=== PATIENT | male | born 1945 | race Caucasian/White ===

== ENCOUNTER → 2023-12-14 09:04 | Outpatient (REF) | payer MEDICARE, SELFPAY | LOC: DHCBS MAIN 09:04 | PROVIDERS: ATTENDING PHYSICIAN Internal Medicine Cardiovascular Disease; FAMILY PHYSICIAN Internal Medicine | DX: I42.9 Cardiomyopathy, unspecified (principal) | CPT/HCPCS: 93306 ==

== ENCOUNTER 2024-04-27 18:41 | Emergency (ER) | payer MEDICARE, SELFPAY ==
[2024-04-27 18:47] VITALS: BP 124/74
[2024-04-27] MEDS: BENADRYL 50 MG PO (18:54)
[2024-04-27 19:50] VITALS: BP 110/62
[2024-04-27 20:00] VITALS: BP 119/65
--- NOTE | 2024-04-27 23:08 | ED.SKININJ ---
HPI-Injury
General
Chief Complaint: Bite
Source: patient
Exam Limitations: none
Time Seen by Provider: 04/27/24 20:01
Nursing documentation reviewed up to this point in time: agreed with
History of Present Illness-Injury
Is this injury a work related problem?: No
Is pt an associate of [facility]/[place]?: No
Initial Injury comments:
Stung by bee on right dorsal hand, left neck. No history of bee allergy. No difficulty breathing or swallowing. Brought to ED by spouse for eval.
Past History
Past History
ED Past Medical History: None
ED Past Surgical History: None
Review of Systems
Review of Systems
Allergies reviewed?: Yes
All Other Systems: ROS reviewed and negative except as documented in HPI and ROS
Constitutional: Reports no symptoms
EENT: Reports no symptoms
Respiratory: Reports no symptoms
Cardiac: Reports no symptoms
ABD/GI: Reports no symptoms
Musculoskeletal: Reports no symptoms
Skin: Reports other (bee sting right dorsal hand, left neck)
Neurological: Reports no symptoms
Psychiatric: Reports no symptoms
Skin Exam
Bee Sting
Right Dorsal Hand:
Pt has: single bite/sting
Surrounding area around sting/bite has: area of erythema/swelling
Left Lateral Neck:
Pt has: single bite/sting
Surrounding area around sting/bite has: area of erythema/swelling
Phy Exam
General Physical Exam
General Presentation: well appearing and no apparent distress
General age: appears stated age
General Skin: warm and dry
General Habitus: normal
General Mental: alert
Cardiovascular Exam
Cardiovascular Exam: regular rate/rhythm
Pulmonary Exam
Pulmonary Exam: lungs clear and no respiratory distress
Musculoskeletal Exam
Musculoskeletal Exam: full ROM and neuro vasc intact
Skin Exam
Skin Exam: normal color and warm/dry
Psychiatric Exam
Psychiatric Exam: normal mood/affect
Course
Orders/Labs/Results
Orders:
Orders
04/27/24 18:52
Diphenhydramine [Benadryl] 50 mg .ROUTE .STK-MED ONE
04/27/24 18:54
Diphenhydramine [Benadryl] 50 mg PO NOW STA
Vital Signs
Initial and Last Documented VS:
Initial Vital Signs
Temp Pulse Resp BP Pulse Ox
98.1 F 78 22 124/74 96
04/27/24 18:47 04/27/24 18:47 04/27/24 18:47 04/27/24 18:47 04/27/24 18:47
Last Documented Vital Signs
Temp Pulse Resp BP Pulse Ox
98.1 F 60 16 119/65 95
04/27/24 18:47 04/27/24 20:36 04/27/24 20:36 04/27/24 20:00 04/27/24 20:30
*Pulse Oximetry
Patient hypoxic: no
*Critical Care Note
Total Time (30-74mins, 75-104mins- exclusive of procedures): Not Applicable
Update Note
Update Note:
Bee sting to right dorsal hand, left neck. No bee sting allergy. No difficulty breathing or swallowing. WIll continue Benadryl prn itching. Given rx for medrol dose pack to start in AM. Given instructions on s/s to return to ED and he is
agreeable to plan.
ED Attending Note
-
Portions of this chart may have been created with voice recognition software.� Occasional wrong word or��sound alike� substitutions may have occurred due to the inherent limitations of voice recognition software.
Discharge Plan
Departure
Patient Disposition: Home (Routine Discharge)
Date of Disposition: 04/27/24
Time of Disposition: 20:18
Patient with high blood pressure during this ER visit?: No
Condition: Good
Covid-19: Not Applicable
Discharge Problem:
Bee sting
Instructions: Using Cold for Pain, Insect Bites and Stings ED
Prescriptions:
New
methylprednisolone [Medrol (Rusty)] 4 mg tablets,dose pack
See Rx Instructions .ROUTE .COMPLEX Qty: 21 0RF
Rx Instructions:
for 6 days
No Action
prednisone 10 MG tablet
10 mg PO .TAPER Qty: 30 0RF
Rx Instructions:
Take 40mg daily x3days, 30mg daily x3days,
20mg daily x3days, 10mg daily x3days.
Activity Restrictions/Additional Instructions:
Continue Benadryl 25-50mg every 4-6 hours as needed for itching. Return to the emergency department immediately for any difficulty breathing or swallowing.
Interventions
Interventions:
*Risk Screen - Suicide Last Done: 04/27/24 18:47
*General Assessment Last Done: 04/27/24 20:35
*Neglect/Abuse Screening Last Done: 04/27/24 18:47
ED- Fall Risk Assessment Last Done: 04/27/24 19:54
*ED COVID-19 Vaccine History Last Done: 04/27/24 19:54
*Nursing Disposition Last Done: 04/27/24 20:36
ED-Skin Assessment Last Done: 04/27/24 19:52
Discharge Date and Time
Discharge Date/Time: 04/27/24 20:37
Print Language: YORUBA
== END 2024-04-27 20:37 | disposition home or self-care (01) ==
LOC: EMR 18:41
PROVIDERS: EMERGENCY PHYSICIAN Emergency Medicine; FAMILY PHYSICIAN Internal Medicine
DX: T63.441A Toxic effect of venom of bees, accidental (unintentional), initial encounter (principal); R22.1 Localized swelling, mass and lump, neck; M25.441 Effusion, right hand; I25.10 Atherosclerotic heart disease of native coronary artery without angina pectoris; E78.5 Hyperlipidemia, unspecified; E03.9 Hypothyroidism, unspecified
CPT/HCPCS: 99283

== ENCOUNTER → 2024-06-17 10:36 | Outpatient (REF) | payer MEDICARE, SELFPAY | LOC: RAD 10:36 | PROVIDERS: ATTENDING PHYSICIAN Internal Medicine | DX: K76.0 Fatty (change of) liver, not elsewhere classified (principal) | CPT/HCPCS: 76700 ==

== ENCOUNTER → 2024-07-17 10:12 | Outpatient (REF) | payer MEDICARE, SELFPAY | LOC: RAD 10:12 | PROVIDERS: ATTENDING PHYSICIAN Internal Medicine | DX: K86.9 Disease of pancreas, unspecified (principal) | CPT/HCPCS: 74177; Q9967 ==

== ENCOUNTER → 2024-10-21 09:22 | Outpatient (REF) | payer MEDICARE, SELFPAY | LOC: RAD 09:22 | PROVIDERS: ATTENDING PHYSICIAN Radiology Diagnostic Radiology; FAMILY PHYSICIAN Internal Medicine | DX: Z13.5 Encounter for screening for eye and ear disorders (principal) | CPT/HCPCS: 71046 ==

== ENCOUNTER → 2024-11-11 14:47 | Outpatient (REF) | payer MEDICARE, SELFPAY | LOC: RAD 14:47 | PROVIDERS: ATTENDING PHYSICIAN Urology; FAMILY PHYSICIAN Internal Medicine | DX: R31.0 Gross hematuria (principal); N52.9 Male erectile dysfunction, unspecified | CPT/HCPCS: 74178; Q9967 ==

== ENCOUNTER → 2024-11-17 13:55 | Outpatient (REF) | payer MEDICARE, SELFPAY | LOC: CLAB 13:55 | PROVIDERS: ATTENDING PHYSICIAN Urology | DX: R31.0 Gross hematuria (principal) | CPT/HCPCS: 88112 ==

== ENCOUNTER → 2024-11-19 13:25 | Outpatient (REF) | payer MEDICARE, SELFPAY | LOC: MRI 13:25 | PROVIDERS: ATTENDING PHYSICIAN Psychiatry & Neurology Neurology | DX: G31.89 Other specified degenerative diseases of nervous system (principal) | CPT/HCPCS: 70551 ==

== ENCOUNTER → 2025-01-09 12:49 | Outpatient (REF) | payer MEDICARE, SELFPAY | LOC: RCS 12:49 | PROVIDERS: ATTENDING PHYSICIAN Internal Medicine Cardiovascular Disease; FAMILY PHYSICIAN Internal Medicine | DX: I42.9 Cardiomyopathy, unspecified (principal) | CPT/HCPCS: 93306 ==